=== PATIENT | male | born 1950 | race Caucasian/White ===

== ENCOUNTER 2019-04-23 01:37 | Inpatient (IN) ==
[2019-04-14 09:12] LABS: URINE SOURCE CLEAN CATCH
[2019-04-14 09:28] LABS: BASO# 0.04 X1000 (0.0-0.2); BASO% 0.5 % (0.0-0.8); EOS# 0.26 X1000 (0.0-0.7); EOS% 3.4 % (0.0-10.0); HEMATOCRIT 42.9 % (42.0-52.0); HEMOGLOBIN 14.6 g/dL (14.0-18.0); IMM GRAN# 0.04 X1000 (0.0-0.04); IMM GRAN% 0.5 % (0.0-0.5); LYMPH% 20.8 % (20.5-51.1); MCH 32.1 PG (27-31); MCV 94.3 FL (81-99); MONO# 0.68 X1000 (0.11-0.59); MONO% 8.8 % (1.7-9.3); MPV 10.4 FL (7.4-10.4); NEUT# 5.08 X1000 (1.4-6.5); PLT 181 X1000 (130-400); RBC 4.55 XMIL (4.7-6.1); RDW 12.4 % (11.5-14.5)
--- NOTE | 2019-04-14 09:28 | EKG Report ---
Test Performed on : 04/14/2019 09:04:11 AM Test Reason : PAT Blood Pressure : / mmHG Vent. Rate : 060 BPM Atrial Rate : 060 BPM P-R Int : 156 ms QRS Dur : 090 ms QT Int : 430 ms P-R-T Axes : 049 013 028 degrees QTc Int : 430 ms Normal sinus rhythm. Normal ECG When compared with ECG of 20-MAR-2018 10:41, No significant change was found Confirmed by Scooby ERAZO, P.J.M ([id number]) on 04/14/2019 6:33:01 PM
[2019-04-14 09:31] LABS: BILIRUBIN URINE NEGATIVE (NEGATIVE); BLOOD URINE NEGATIVE (NEGATIVE); COLOR YELLOW; GLUCOSE URINE NEGATIVE (NEGATIVE); KETONE URINE TRACE mg/dL (NEGATIVE); LEUKOCYTES URINE NEGATIVE (NEGATIVE); NITRITE URINE NEGATIVE (NEGATIVE); PROTEIN URINE NEGATIVE (NEGATIVE); SP GRAVITY URINE 1.023; TURBIDITY URINE CLEAR (CLEAR); UROBILINOGEN URINE NORMAL (NORMAL)
[2019-04-14 09:33] LABS: INR 0.96; PROTIME 12.9 Seconds (11.0-16.0)
[2019-04-14 09:35] LABS: UR EPITHELIAL CELLS <10 /HPF (<10); URINE BACTERIA NEGATIVE /HPF; URINE RBC <10 /HPF (<10); URINE WBC <10 /HPF (<10)
[2019-04-14 10:28] LABS: HEMOGLOBIN A1C 4.9 % (4.8-6.0)
[2019-04-14 10:47] LABS: CALCIUM 9.3 mg/dL (8.8-10.2); CREATININE 1.4 mg/dL (0.7-1.2); POTASSIUM 4.3 mmol/L (3.5-5.1)
[2019-04-23] MEDS ORDERED: PEPCID ONE (06:23)
[2019-04-23] MEDS ORDERED: LYRICA ONE (06:23)
[2019-04-23] MEDS ORDERED: COLACE ONE (06:23)
[2019-04-23] MEDS ORDERED: LR 1,000 ML ONE (06:23)
[2019-04-23] MEDS ORDERED: KEFZOL 1 GM/D5W 2 GM/100 ML IVPB ONE (06:23)
[2019-04-23] MEDS ORDERED: CELEBREX ONE (06:23)
[2019-04-23] MEDS ORDERED: MARCAINE 0.25% PF ONE (07:23)
[2019-04-23] MEDS ORDERED: TORADOL ONE (07:23)
[2019-04-23] MEDS ORDERED: DURAMORPH ONE (07:23)
[2019-04-23] MEDS ORDERED: CYKLOKAPRON 1,000 MG/NS 1,000 MG/100 ML IVPB ONE (07:24)
[2019-04-23] MEDS ORDERED: SODIUM CHLORIDE 0.9% ONE (07:24)
[2019-04-23] MEDS ORDERED: EXPAREL 1.3% ONE (07:25)
[2019-04-23] MEDS ORDERED: DIPRIVAN 1% ONE (07:43)
[2019-04-23] MEDS ORDERED: XYLOCAINE-MPF 2% ONE (07:44)
[2019-04-23] MEDS ORDERED: QUELICIN (DOSE) ONE (07:45)
[2019-04-23] MEDS ORDERED: NORCURON ONE ×2 (07:46→07:47)
[2019-04-23] MEDS ORDERED: STERILE WATER INJ. ONE ×2 (07:46→07:47)
[2019-04-23] MEDS ORDERED: SUFENTA ONE (07:50)
[2019-04-23 09:10] LABS: URINE SOURCE CATH
[2019-04-23 09:19] LABS: BILIRUBIN URINE NEGATIVE (NEGATIVE); BLOOD URINE NEGATIVE (NEGATIVE); COLOR YELLOW; GLUCOSE URINE NEGATIVE (NEGATIVE); KETONE URINE TRACE mg/dL (NEGATIVE); LEUKOCYTES URINE NEGATIVE (NEGATIVE); NITRITE URINE NEGATIVE (NEGATIVE); PH URINE 5.5; PROTEIN URINE NEGATIVE (NEGATIVE); SP GRAVITY URINE 1.025; TURBIDITY URINE CLEAR (CLEAR); UROBILINOGEN URINE NORMAL (NORMAL)
[2019-04-23 09:21] LABS: UR EPITHELIAL CELLS <10 /HPF (<10); URINE BACTERIA NEGATIVE /HPF; URINE RBC <10 /HPF (<10); URINE WBC <10 /HPF (<10)
[2019-04-23] MEDS ORDERED: EPINEPHRINE ONE (09:39)
[2019-04-23] MEDS ORDERED: OFIRMEV 1000 MG/ISOTONIC SOLN 1,000 MG/100 ML BOTTLE ONE (09:59)
[2019-04-23] MEDS ORDERED: NS 1,000 ML ONE (11:19)
[2019-04-23] MEDS: DILAUDID ONE ×2 (11:23→11:26)
[2019-04-23] MEDS ORDERED: OXY IR ONE (11:38)
--- NOTE | 2019-04-23 11:42 | Diag Imaging Result Doc PS360 ---
EXAM: SHOULDER 1 VIEW LEFT HISTORY: lt total shoulder arthroplasty TECHNIQUE: Single view COMPARISON: None. FINDINGS: There has been orthopedic replacement of the left shoulder. No fracture. No dislocation. No separation to the common clavicular joint. IMPRESSION: Replaced left shoulder Electronically signed by Colt Paz 04/23/2019 11:40 AM
[2019-04-23] MEDS ORDERED: MILK OF MAGNESIA PO PRN (11:45)
[2019-04-23] MEDS ORDERED: OXY IR PO PRN (11:45)
[2019-04-23] MEDS ORDERED: ZOFRAN PO PRN (11:45)
[2019-04-23] MEDS: NS 1,000 ML IV SCH ×2 (13:34→18:51)
[2019-04-23] MEDS: OXY IR PO PRN ×2 (13:34→21:42)
[2019-04-23] MEDS ORDERED: CYKLOKAPRON 1,000 MG in NS 100 ML IV ONE (14:30)
[2019-04-23] MEDS ORDERED: VIAGRA PO PRN (15:07)
[2019-04-23] MEDS: TYLENOL PO SCH ×2 (17:13→21:43)
[2019-04-23] MEDS: KEFZOL 2 GM/D5W 2 GM/50 ML IVPB IV SCH (17:13)
[2019-04-23] MEDS: NEURONTIN PO SCH (18:51)
[2019-04-23] MEDS: SYMMETREL PO SCH (18:52)
[2019-04-23] MEDS: SINEMET 25/100 PO SCH (18:52)
[2019-04-23] MEDS: REQUIP PO SCH (18:53)
--- NOTE | 2019-04-23 20:10 | OPERATIVE NOTE ---
PROCEDURE DATE: 04/23/2019 PREOPERATIVE DIAGNOSIS: Left glenohumeral arthritis. POSTOPERATIVE DIAGNOSIS: Left glenohumeral arthritis. PROCEDURES: Left reverse shoulder arthroplasty with DePuy Delta Xtend size 12 press-fit stem, a 42 +6 humeral cup, a 42+ 4 mm eccentric was 4 mL lateralized eccentric Glenosphere and a standard metaglene. SURGEON: Gerard Cantrell MD KAIAKO KURA TUARUA: JENNIFER Purdy operating room assistant was Sapphire Oliver who was necessary for proper retraction and manipulation of the extremity during the case. SECOND KAIAKO KURA TUARUA: Jermaine Vera RN. ANESTHESIA: General. IV FLUIDS: 2500 mL lactated Ringer's. ESTIMATED BLOOD LOSS: 100 mL. COMPLICATIONS: None. INDICATION: The patient is a 69-year-old male with a chronic history of pain and discomfort in his left shoulder. Continued pain and discomfort despite appropriate nonoperative treatment. X- rays revealed significant degenerative arthritis. Recommendation was to proceed with left reverse shoulder arthroplasty was offered. Risks and benefits of surgery were explained, including the risks of anesthesia, , bleeding, infection, failure to relieve pain, postoperative stiffness, nerve injury, blood clots, and other imponderables. All questions answered patient and family wished to proceed with surgery. DETAILS OF THE OPERATION: The patient was taken to the operating room and placed supine on the operating table. Once adequate anesthesia was obtained, he was placed in a semi-Oh beach-chair position. The left shoulder was subsequently prepped and draped in usual sterile fashion. Standard deltopectoral incision made. Hemostasis was obtained using electrocautery. The deltopectoral interval was then developed. The cephalic vein was retracted laterally with the deltoid. Elevation the clavipectoral fascia was performed as well and a Maki retractor was placed deep to the conjoint tendon. The subscapularis tendon was then identified. Stay sutures were placed. Approximately 1 cm medial to its insertion it was released. The humeral head was then dislocated anteriorly. Sequential reaming was conducted in the intramedullary canal, starting up to a size 12. The intramedullary guide was placed in position. The humeral head was then resected. The patient did have an inferior osteophyte which was removed. A protective disk was then placed. Attention was then turned to the glenoid. It had significant arthritis. Circumferential dissection was performed. A guide was then placed in position. Guide pin was placed. Reaming was then conducted. The central hole was then dilated. The wound was copiously with antibiotic pulsatile lavage. A standard metaglene was then impacted into position. Three locking screws and 1 nonlocking screw was placed. It had good purchase. The wound was copiously irrigated once again. The 42, +4 mm lateralized eccentric Glenosphere was then placed with the eccentricity placed inferiorly. Attention then turned to the proximal humerus where the intramedullary guide was placed in position. Proximal humerus was reamed. The wound was copiously irrigated with antibiotic pulsatile lavage. A 12 Delta Xtend press-fit humeral stem was then impacted had with impaction of autologous bone graft and had good purchase. The trial cup sizing was performed and a 42, +6 appeared to correct size. The trial cup was removed. The wound was copiously once again. A 42, + 6 humeral cup was then placed. The shoulder was reduced, carried through range of motion. It had excellent stability and range of motion. Exparel was placed deep soft tissue. The wound was copiously irrigated. A #2 FiberWire was used to repair the subscapularis tendon. Remaining Exparel was placed in deep soft tissue, as well as subcutaneous tissue. Copious irrigation performed once again with antibiotic pulsatile lavage. A 2-0 Vicryl was then used to repair the subcutaneous tissue followed by running 2-0 Prolene. Adaptic, benzoin and Steri-Strips were applied. Adaptic, sterile 4 x 4, ABD pad, and tape applied to the left shoulder followed by shoulder immobilizer. All counts were correct. The patient tolerated the procedure well and was transferred to the recovery room in stable condition. cc: Gerard Cantrell MD
[2019-04-23] MEDS ORDERED: ZIAC 5/6.25 MG PO SCH (21:00)
[2019-04-23] MEDS ORDERED: NORVASC PO SCH (21:00)
[2019-04-23] MEDS: PERIDEX MT SCH (21:42)
[2019-04-23] MEDS: COLACE PO SCH (21:43)
[2019-04-24] MEDS: KEFZOL 2 GM/D5W 2 GM/50 ML IVPB IV SCH (00:07)
[2019-04-24] MEDS: [UNRECOGNIZED DRUG - OTHER] PO SCH ×2 (02:23→09:45)
[2019-04-24] MEDS: SYMMETREL PO SCH ×2 (02:24→09:47)
[2019-04-24] MEDS: NEURONTIN PO SCH ×2 (02:24→09:45)
[2019-04-24] MEDS: REQUIP PO SCH ×2 (02:24→09:46)
[2019-04-24] MEDS: NS 1,000 ML IV SCH (02:25)
[2019-04-24 07:00] LABS: HEMATOCRIT 39.5 % (42.0-52.0); HEMOGLOBIN 13.3 g/dL (14.0-18.0)
[2019-04-24 07:21] LABS: CALCIUM 8.8 mg/dL (8.8-10.2); CREATININE 1.3 mg/dL (0.7-1.2); POTASSIUM 3.5 mmol/L (3.5-5.1)
[2019-04-24 07:25] VITALS: BP 138/61
[2019-04-24] MEDS: TYLENOL PO SCH (08:07)
[2019-04-24] MEDS: SINEMET 25/100 PO SCH (08:08)
[2019-04-24] MEDS: COLACE PO SCH (09:46)
[2019-04-24] MEDS: PERIDEX MT SCH (09:47)
[2019-04-24] MEDS ORDERED: SINEMET 25/100 PO SCH (10:00)
--- NOTE | 2019-04-24 12:52 | ORTHOPAEDICS PROGRESS NOTE ---
DATE: 04/24/2019 SUBJECTIVE: The patient is a 69-year-old male who is 1 day status post left reversal total shoulder arthroplasty. He is currently resting comfortably. OBJECTIVE: On physical exam, the patient's dressing is intact. Appears neurovascularly distally. Able to flex and extend all of his fingers. LABS: Pending. IMPRESSION: Postoperative day #1 status post left reverse total shoulder arthroplasty. PLAN: At this point, I will plan on discharging home. We will arrange for outpatient physical therapy. Patient will follow up in the office on 05/05/2019. cc: Gerard Cantrell MD
== END 2019-04-24 11:25 | disposition home or self-care (01) | DRG 483 ==
LOC: SURHOLD 01:37 → 4N 09:15
PROVIDERS: ADMIT Orthopaedic Surgery Adult Reconstructive Orthopaedic Surgery; ATTEND Orthopaedic Surgery Adult Reconstructive Orthopaedic Surgery